=== PATIENT | male | born 1950 | race Asian ===

== ENCOUNTER 2019-05-22 09:15 | Outpatient (CLI) | payer MEDICARE | END 2019-05-22 23:59 | disposition home or self-care (01) | LOC: RAD 09:15 | PROVIDERS: ATTEND Podiatrist Foot & Ankle Surgery | DX: M19.071 Primary osteoarthritis, right ankle and foot (principal); M20.11 Hallux valgus (acquired), right foot; M77.51 Other enthesopathy of right foot and ankle; M21.6X1 Other acquired deformities of right foot; M77.31 Calcaneal spur, right foot | CPT/HCPCS: 73610-TC; 73630-TC ==

== ENCOUNTER 2019-05-22 09:30 | Outpatient (CLI) | payer MEDICARE | END 2019-05-22 23:59 | disposition home or self-care (01) | LOC: WOU 09:30 | PROVIDERS: ATTEND Podiatrist Foot & Ankle Surgery | DX: M76.71 Peroneal tendinitis, right leg (principal); S93.401A Sprain of unspecified ligament of right ankle, initial encounter; X58.XXXA Exposure to other specified factors, initial encounter; Y92.89 Other specified places as the place of occurrence of the external cause; R26.2 Difficulty in walking, not elsewhere classified; E11.9 Type 2 diabetes mellitus without complications; Z79.84 Long term (current) use of oral hypoglycemic drugs; I10 Essential (primary) hypertension; Z87.891 Personal history of nicotine dependence | CPT/HCPCS: G0463 ==

== ENCOUNTER 2020-10-07 09:50 | Outpatient (CLI) | payer MEDICARE | END 2020-10-07 23:59 | disposition home or self-care (01) | LOC: WOU 09:50 | PROVIDERS: ATTEND Podiatrist Foot & Ankle Surgery | DX: M79.672 Pain in left foot (principal); R26.2 Difficulty in walking, not elsewhere classified; M21.42 Flat foot [pes planus] (acquired), left foot; I10 Essential (primary) hypertension; E11.9 Type 2 diabetes mellitus without complications; Z85.9 Personal history of malignant neoplasm, unspecified; Z92.21 Personal history of antineoplastic chemotherapy | CPT/HCPCS: 73630; G0463 ==

== ENCOUNTER 2020-10-14 09:50 | Outpatient (CLI) | payer MEDICARE | END 2020-10-14 23:59 | disposition home or self-care (01) | LOC: WOU 09:50 | PROVIDERS: ATTEND Podiatrist Foot & Ankle Surgery | DX: M21.42 Flat foot [pes planus] (acquired), left foot (principal); M76.71 Peroneal tendinitis, right leg; S93.10 Unspecified subluxation and dislocation of toe; X58.XXXD Exposure to other specified factors, subsequent encounter; E11.9 Type 2 diabetes mellitus without complications; Z79.84 Long term (current) use of oral hypoglycemic drugs; I10 Essential (primary) hypertension | CPT/HCPCS: G0463 ==